=== PATIENT | male | born 1995 | race African-American/Black ===

== ENCOUNTER 2017-02-21 14:37 | Emergency (ER) | payer OTHER ==
[2017-02-21 14:47] VITALS: BP 123/73
[2017-02-21 15:06] LABS: BILIRUBIN,URINE NEGATIVE (NEGATIVE)
[2017-02-21 15:09] LABS: UA CHARGE (STRIP ONLY) YES; UR CULTURE IF IND NOT INDICATED
--- NOTE | 2017-02-21 17:00 | ED Physician Documentation ---
PD HPI MALE - Stated complaint Stated Complaint: MALE - Chief complaint Chief Complaint: General - History obtained from History obtained from: Patient - History of Present Illness Timing - onset: How many days ago (4) Timing - duration: Days (4) Timing - details: Gradual onset, Still present, Waxing and waning Associated symptoms: Dysuria, Urinary frequency. No: Hematuria, Discharge, Genital sore / lesion, Testiclar pain, Scrotal swelling PD HPI MALE CONTRIB FACTORS: Sexually active (single partner for long time, and his partner is 32 weeks without vaginal symptoms/discharge.) Similar symptoms before: Has not had sx before Recently seen: Not recently seen Review of Systems Constitutional: denies: Fever, Chills, Myalgias Throat: denies: Sore throat : reports: Dysuria, Frequency. denies: Hematuria, Discharge Skin: denies: Rash, Lesions PD PAST MEDICAL HISTORY - Past Medical History Past Medical History: Yes GI: GERD : None - Past Surgical History Past Surgical History: No - Present Medications Home Medications: Ambulatory Orders Medication Instructions Recorded Confirmed Doxycycline Hyclate 100 mg PO BID #14 tablet 02/21/17 - Allergies Allergies/Adverse Reactions: Allergies Allergy/AdvReac Type Severity Reaction Status Date / Time No Known Drug Allergies Allergy Verified 02/21/17 14:47 - Social History Does the pt smoke?: No Smoking Status: Never smoker Does the pt drink ETOH?: No Does the pt have substance abuse?: No - Immunizations Immunizations are current?: Yes PD ED PE NORMAL - Vitals Vital signs reviewed: Yes - General General: Alert and oriented X 3, No acute distress, Well developed/nourished - HEENT HEENT: Pharynx benign - Male Male : Other (normal external genitalia. Small 1 cm nontender node right inguinal. No rash. No discharge. Testicles not tender nor any masses. ) - Derm Derm: Normal color, Warm and dry, No rash Results - Vitals Vitals: Oxygen O2 Source Room air - Labs Labs: Laboratory Tests 02/21/17 14:51 Urine Color YELLOW Urine Clarity CLEAR Urine pH 8.0 H Ur Specific [place] 1.015 Urine Protein NEGATIVE Urine Glucose (UA) NEGATIVE Urine Ketones NEGATIVE Urine Occult Blood NEGATIVE Urine Nitrite NEGATIVE Urine Bilirubin NEGATIVE Urine Urobilinogen 1 (NORMAL) Ur Leukocyte Esterase NEGATIVE Ur Microscopic Review NOT INDICATED Urine Culture Comments NOT INDICATED PD MEDICAL DECISION MAKING - ED course Complexity details: reviewed results (no UTI noted. Denies exposure to STD. Consider urethritis from potential BV, but partner without symptoms. doing gc/ chlamydia off urine. ), considered differential, d/w patient Departure - Departure Disposition: 01 Home, Self Care Clinical Impression: Urethritis Condition: Stable Record reviewed to determine appropriate education?: Yes Instructions: ED Urethritis Infec Vs Inflam Male Prescriptions: Doxycycline Hyclate 100 mg PO BID #14 tablet Comments: The culture will result in 3 days or so. This will tell us if there may be other causes of this infection, such as chlamydia. For now would presume regular bacterial causes such as for bladder infection. Recheck if not improved over the next few days. Drink lots of fluids. Continue the as though and cranberry. Doxycycline twice a day for a week. Discharge Date/Time: 02/21/17 17:37
[2017-02-21] MEDS ORDERED: DOXYCYCLINE 100 MG TABLET PO STA (17:21)
[2017-02-21] MEDS ORDERED: DOXYCYCLINE 100 MG TABLET PO ONE (17:32)
== END 2017-02-21 17:37 | disposition home or self-care (01) ==
LOC: ED 14:37
DX: N34.2 Other urethritis (principal); K21.9 Gastro-esophageal reflux disease without esophagitis
CPT/HCPCS: 81003; 87491; 87591; 99283; A9270; 81001; 87086